=== PATIENT | male | born 1935 | race Caucasian/White ===

== ENCOUNTER 2017-12-28 12:40 | Inpatient (IN) | payer MEDICARE, OTHER ==
[~2017-12-28] VITALS: Ht 182.9 cm; Wt 105.5 kg
[2017-12-28] MEDS ORDERED: ONDANSETRON 2MG/ML, 2ML ONE ×2 (12:51→14:10)
[2017-12-28] MEDS ORDERED: SODIUM CHLORIDE 0.9% 1,000 ML IV ONE (12:51)
[2017-12-28] MEDS ORDERED: ONDANSETRON 2MG/ML, 2ML IVPush ONE ×2 (13:00→14:30)
[2017-12-28] MEDS ORDERED: SODIUM CHLORIDE 0.9% 1,000ML IVBOLUS ONE (13:00)
[2017-12-28] MEDS ORDERED: SODIUM CHLORIDE FLUSH 10ML SYR IVF ONE (13:00)
[2017-12-28] MEDS ORDERED: ATOR-2 PO (13:02)
[2017-12-28] MEDS ORDERED: ASPI-650 PO (13:02)
[2017-12-28] MEDS ORDERED: FINA5TAB4 PO (13:02)
[2017-12-28] MEDS ORDERED: SPIR1TAB3 PO (13:02)
[2017-12-28] MEDS ORDERED: METO25TA35 PO (13:02)
[2017-12-28] MEDS ORDERED: ISOS60TA36 PO (13:02)
[2017-12-28] MEDS ORDERED: OMEP40CA6 PO (13:02)
[2017-12-28] MEDS ORDERED: LISI-170 PO (13:02)
[2017-12-28] MEDS ORDERED: ALLO300T PO (13:02)
[2017-12-28] MEDS ORDERED: CILO50TA PO (13:02)
[2017-12-28 13:18] LABS: BASOPHILS # (AUTO) 0.04 x10^3/uL (0-0.1); BASOPHILS % (AUTO) 0 % (0-1); EOSINOPHILS # (AUTO) 0.24 x10^3/uL (0-0.4); EOSINOPHILS % (AUTO) 2 % (1-7); LYMPHOCYTES % (AUTO) 30 % (22-44); MD NO; MEAN CORPUSCULAR HEMOGLOBIN 32.3 pg (27.5-34.5); MEAN CORPUSCULAR VOLUME 95.1 fL (81-97); MEAN PLATELET VOLUME 8.7 fL (7.4-10.4); MONOCYTES # (AUTO) 0.84 x10^3/uL (0.2-0.8); MONOCYTES % (AUTO) 8 % (2-9); NEUTROPHILS # (AUTO) 6.25 x10^3/uL (1.8-6.8); NEUTROPHILS % (AUTO) 60 % (42-75); PLATELET COUNT 247 x10^3/uL (130-400); RED BLOOD COUNT 4.62 x10^6/uL (4.38-5.82); RED CELL DISTRIBUTION WIDTH 13.5 % (9.4-14.8)
[2017-12-28 13:23] LABS: INTERNATIONAL NORMALIZED RATIO 1.04 (0.93-1.1); PROTHROMBIN TIME 10.7 Seconds (9.6-11.5)
[2017-12-28 13:28] LABS: ALANINE AMINOTRANSFERASE 24 U/L (12-78); ANION GAP 12 mmol/L (5-15); CALCIUM 9.3 mg/dL (8.5-10.1); CHLORIDE 104 mmol/L (98-107)
[2017-12-28 13:32] LABS: ALKALINE PHOSPHATASE 69 U/L (45-117); BILIRUBIN,TOTAL 0.7 mg/dL (0.2-1.0); TOTAL PROTEIN 7.5 g/dL (6.4-8.2); TROPONIN I < 0.015 ng/mL (0.000-0.045)
[2017-12-28] MEDS ORDERED: ONDANSETRON ODT 4 MG PO PRN (14:30)
[2017-12-28] MEDS ORDERED: PROMETHAZINE 25 MG/ML, 1ML IM PRN (14:30)
[2017-12-28] MEDS ORDERED: ONDANSETRON 2MG/ML, 2ML IVPush PRN (14:30)
[2017-12-28] MEDS ORDERED: METOCLOPRAMIDE 5 MG/ML, 2ML IVPush PRN (14:30)
[2017-12-28] MEDS ORDERED: SODIUM CHLORIDE FLUSH 10ML SYR IVF PRN (14:30)
[2017-12-28 15:30] VITALS: BP 114/68
[2017-12-28] MEDS: LACTATED RINGERS 1,000 ML IV SCH ×2 (15:37→23:47)
[2017-12-28 18:59] LABS: MICROSCOPIC INDICATED
[2017-12-28 19:07] LABS: CULTURE INDICATED? NO
[2017-12-28 19:25] VITALS: BP 111/56
[2017-12-28] MEDS: CILOSTAZOL PO SCH (20:24)
[2017-12-28] MEDS: ATORVASTATIN 80 MG TABLET PO SCH ×2 (20:29→20:41)
[2017-12-29] VITALS (7 sets, daily range): BP systolic 106–136; BP diastolic 59–71
[2017-12-29 05:42] LABS: ANION GAP 9 mmol/L (5-15); CHLORIDE 105 mmol/L (98-107)
[2017-12-29 05:43] LABS: CALCIUM 8.2 mg/dL (8.5-10.1); CREATININE 1.45 mg/dL (0.7-1.3)
[2017-12-29 05:44] LABS: BASOPHILS # (AUTO) 0.04 x10^3/uL (0-0.1); BASOPHILS % (AUTO) 0 % (0-1); EOSINOPHILS # (AUTO) 0.04 x10^3/uL (0-0.4); EOSINOPHILS % (AUTO) 0 % (1-7); LYMPHOCYTES # (AUTO) 1.63 x10^3/uL (1-3.4); LYMPHOCYTES % (AUTO) 16 % (22-44); MD NO; MEAN CORPUSCULAR HGB CONC 33.4 g/dL (33.2-36.2); MEAN CORPUSCULAR VOLUME 95.8 fL (81-97); MEAN PLATELET VOLUME 9.1 fL (7.4-10.4); MONOCYTES # (AUTO) 0.68 x10^3/uL (0.2-0.8); MONOCYTES % (AUTO) 7 % (2-9); NEUTROPHILS # (AUTO) 8.07 x10^3/uL (1.8-6.8); NEUTROPHILS % (AUTO) 77 % (42-75); PLATELET COUNT 167 x10^3/uL (130-400); RED BLOOD COUNT 4.12 x10^6/uL (4.38-5.82); RED CELL DISTRIBUTION WIDTH 14.1 % (9.4-14.8)
[2017-12-29] MEDS: CILOSTAZOL PO SCH (07:29)
[2017-12-29] MEDS: LACTATED RINGERS 1,000 ML IV SCH ×2 (08:00→20:32)
[2017-12-29] MEDS: ALLOPURINOL 300 MG TABLET PO SCH (08:09)
[2017-12-29] MEDS: OMEPRAZOLE 20 MG CAPSULE.DR PO SCH (08:09)
[2017-12-29] MEDS: ASPIRIN 325 MG TABLET EC PO SCH (08:09)
[2017-12-29] MEDS: ATORVASTATIN 80 MG TABLET PO SCH (08:09)
[2017-12-29] MEDS ORDERED: ACETAMINOPHEN 325 MG TABLET ONE (11:43)
[2017-12-29] MEDS ORDERED: ACETAMINOPHEN 325 MG TABLET PO ONE (12:00)
[2017-12-29] MEDS ORDERED: LACTATED RINGERS 1,000 ML IV SCH (16:00)
[2017-12-30] VITALS (8 sets, daily range): BP systolic 113–154; BP diastolic 60–87
[2017-12-30 05:53] LABS: BASOPHILS # (AUTO) 0.03 x10^3/uL (0-0.1); BASOPHILS % (AUTO) 0 % (0-1); EOSINOPHILS # (AUTO) 0.06 x10^3/uL (0-0.4); EOSINOPHILS % (AUTO) 1 % (1-7); LYMPHOCYTES # (AUTO) 1.65 x10^3/uL (1-3.4); LYMPHOCYTES % (AUTO) 19 % (22-44); MD NO; MEAN CORPUSCULAR HEMOGLOBIN 31.7 pg (27.5-34.5); MEAN CORPUSCULAR HGB CONC 33.4 g/dL (33.2-36.2); MEAN CORPUSCULAR VOLUME 94.9 fL (81-97); MEAN PLATELET VOLUME 9.1 fL (7.4-10.4); MONOCYTES # (AUTO) 0.64 x10^3/uL (0.2-0.8); MONOCYTES % (AUTO) 7 % (2-9); NEUTROPHILS # (AUTO) 6.39 x10^3/uL (1.8-6.8); NEUTROPHILS % (AUTO) 73 % (42-75); PLATELET COUNT 152 x10^3/uL (130-400); RED BLOOD COUNT 4.23 x10^6/uL (4.38-5.82); RED CELL DISTRIBUTION WIDTH 13.4 % (9.4-14.8)
[2017-12-30 06:03] LABS: ANION GAP 6 mmol/L (5-15); CALCIUM 9.1 mg/dL (8.5-10.1); CHLORIDE 102 mmol/L (98-107); CREATININE 1.05 mg/dL (0.7-1.3)
[2017-12-30] MEDS ORDERED: MAGNESIUM SULFATE PMX 2GM/50ML 50 ML IV ONE (08:00)
[2017-12-30] MEDS: LACTATED RINGERS 1,000 ML IV SCH (08:50)
[2017-12-30] MEDS: ASPIRIN 325 MG TABLET EC PO SCH (09:05)
[2017-12-30] MEDS: ALLOPURINOL 300 MG TABLET PO SCH (09:05)
[2017-12-30] MEDS: OMEPRAZOLE 20 MG CAPSULE.DR PO SCH (09:06)
[2017-12-30] MEDS ORDERED: LACTATED RINGERS 1,000 ML IV SCH (16:00)
== END 2017-12-30 14:56 | disposition home or self-care (01) | DRG 314 ==
LOC: ED 14:16 → 4WST 14:17 → ED 14:44 → DCLOUNGE 12-30 14:45
PROVIDERS: ADMIT Hospitalist; ATTEND Hospitalist
DX: I95.89 Other hypotension (principal); N17.0 Acute kidney failure with tubular necrosis; E87.2 Acidosis; E86.0 Dehydration; E86.1 Hypovolemia; E66.9 Obesity, unspecified; I10 Essential (primary) hypertension; D72.829 Elevated white blood cell count, unspecified; E78.00 Pure hypercholesterolemia, unspecified; N40.0 Benign prostatic hyperplasia without lower urinary tract symptoms; R56.9 Unspecified convulsions; Z95.5 Presence of coronary angioplasty implant and graft; Z68.31 Body mass index [BMI] 31.0-31.9, adult; I25.2 Old myocardial infarction
CPT/HCPCS: 36415; 70450; 71045; 80048; 80053; 81001; 82140; 83605; 83735; 84100; 84484; 85025; 85610; 85730; 87040; 93005; 93306; 96361; 96374; 96376; J2405; J3475; J7030; J7120